=== PATIENT | female | born 1970 | race Caucasian/White ===

== ENCOUNTER 2017-07-01 19:12 | Emergency (ER) | payer SELFPAY ==
[2017-07-01 19:47] VITALS: BP 123/82; PULSE 90; RESP 16; TEMP 99.3; O2SAT 100
--- NOTE | 2017-07-01 21:25 | C.PDOC ---
Time Seen by Provider: 07/01/17 21:25 Chief Complaint (Nursing): Headache Past Medical History Vital Signs: Last Vital Signs Temp 99.3 F 07/01/17 19:40 Pulse 90 07/01/17 19:40 Resp 16 07/01/17 19:40 BP 123/82 07/01/17 19:40 Pulse Ox 100 07/01/17 19:40 Family History: States: Unknown Family Hx - Social History Hx Alcohol Use: No Hx Substance Use: No - Immunization History Hx Tetanus Toxoid Vaccination: No Hx Influenza Vaccination: No Hx Pneumococcal Vaccination: No ED Course And Treatment O2 Sat by Pulse Oximetry: 100 Disposition Counseled Patient/Family Regarding: Studies Performed, Diagnosis - Disposition Disposition Time: 21:25
== END 2017-07-01 22:05 | disposition left against medical advice (07) ==
LOC: C.ER 19:12
DX: Z02.89 Encounter for other administrative examinations (principal); R51 Headache

== ENCOUNTER 2017-10-05 09:28 | Emergency (ER) | payer SELFPAY ==
[2017-10-05 09:50] VITALS: TEMP 98.2
--- NOTE | 2017-10-05 10:56 | C.PDOC ---
History Of Present Illness 47 y/o female presents to ED with complaints of abdominal pain while on her way to work at 8 am today. Patient states she has this pain intermittently for " long time" but takes home remedies and resolves. Patient states today pain was worse with associated nausea and took Omeprazole with mild relief but came to ED for further evaluation. Patient reports last bowel movement was today but very little and denies chest pain, sob, vomiting or any other complaints at this time. Time Seen by Provider: 10/05/17 10:10 Chief Complaint (Nursing): Abdominal Pain History Per: Patient History/Exam Limitations: no limitations Onset/Duration Of Symptoms: Hrs Current Symptoms Are (Timing): Still Present Location Of Pain/Discomfort: Epigastric Past Medical History Reviewed: Historical Data, Nursing Documentation, Vital Signs Vital Signs: Last Vital Signs Temp 98.2 F 10/05/17 09:45 Pulse 71 10/05/17 09:45 Resp 18 10/05/17 09:45 BP 147/95 H 10/05/17 09:45 Pulse Ox 100 10/05/17 11:01 - Medical History PMH: No Chronic Diseases Surgical History: Family History: States: No Known Family Hx - Social History Hx Alcohol Use: No Hx Substance Use: No - Immunization History Hx Tetanus Toxoid Vaccination: No Hx Influenza Vaccination: No Hx Pneumococcal Vaccination: No Review Of Systems Constitutional: Negative for: Fever, Chills Cardiovascular: Negative for: Chest Pain Respiratory: Negative for: Shortness of Breath Gastrointestinal: Positive for: Nausea, Abdominal Pain. Negative for: Vomiting Skin: Negative for: Rash Physical Exam - Physical Exam Appears: Non-toxic, No Acute Distress Skin: Warm, Dry, No Rash Head: Atraumatic, Normacephalic Oral Mucosa: Moist Neck: Normal ROM, Supple Cardiovascular: Rhythm Regular Respiratory: Normal Breath Sounds, No Rales, No Rhonchi, No Wheezing Gastrointestinal/Abdominal: Soft, No Tenderness, No Guarding, No Rebound Back: No CVA Tenderness Extremity: Normal ROM, Capillary Refill (<2 seconds) Neurological/Psych: Oriented x3, Normal Speech, Normal Cognition ED Course And Treatment - Laboratory Results Result Diagrams: 10/05/17 11:03 10/05/17 11:03 O2 Sat by Pulse Oximetry: 100 (RA) Pulse Ox Interpretation: Normal Medical Decision Making Medical Decision Making: Plan: UA, Blood work ordered. Pepcid , Zofran and IV fluids administered pt wilth mild residual tenderness, given maalox. will d/c home on protonix, and f/u clinic and gi. Disposition Counseled Patient/Family Regarding: Studies Performed, Diagnosis, Need For Followup, Rx Given - Disposition Referrals: [facility] [Outside] Sergey Liang MD [Staff Provider] - Disposition: HOME/ ROUTINE Disposition Time: 15:26 Condition: IMPROVED Additional Instructions: Deje de neil omeprazol y tome protonix (ompeprazol). Seguimiento en la clnica mdica y tambin con el doctor GI (estmago), Dr. Liang. Regrese a la dean de emergencias por cualquier sntoma peor. Coma comidas blandas.Please stop taking omeprazole and take protonix (ompeprazole) instead. Follow up in medical clinic and also with the GI (stomach) doctor, Dr Liang. Return to ER for any worse symptoms. Eat bland foods. Prescriptions: Pantoprazole Sodium [Protonix] 40 mg PO DAILY #30 tab Instructions: Gastritis (DC), King Diet Forms: Gen Discharge Inst [place], [employer] [facility] ([place]), Work Excuse - Clinical Impression Clinical Impression: Gastritis - PA / PHLEBOTOMIST ASSOCIATE / Resident Statement MD/DO has reviewed & agrees with the documentation as recorded. - Scribe Statement The provider has reviewed the documentation as recorded by the Jennifer Moreno All medical record entries made by the Rosioibphoebe were at my direction and personally dictated by me. I have reviewed the chart and agree that the record accurately reflects my personal performance of the history, physical exam, medical decision making, and the department course for this patient. I have also personally directed, reviewed, and agree with the discharge instructions and disposition.
[2017-10-05 11:09] LABS: HCG,QUALITATIVE URINE NEGATIVE (NEGATIVE)
[2017-10-05 11:11] LABS: SQUAMOUS EPITHIAL 1 /hpf (0-5); URINE BILIRUBIN NEGATIVE (NEGATIVE); URINE BLOOD NEGATIVE (NEGATIVE); URINE CLARITY Clear (Clear); URINE COLOR Yellow (YELLOW); URINE GLUCOSE (UA) NORMAL (Normal); URINE LEUKOCYTE ESTERASE NEG Leu/uL (Negative); URINE PROTEIN NEGATIVE (NEGATIVE); URINE UROBILINOGEN NORMAL mg/dL (0.2-1.0)
[2017-10-05 11:14] LABS: BASO # 0.1 K/uL (0.0-0.2); BASO % 1.8 % (0.0-2.0); EOS # 0.1 K/uL (0.0-0.7); EOS % 1.1 % (0.0-4.0); HEMOGLOBIN 12.4 g/dL (11.0-16.0); LYMPH # 1.5 K/uL (1.0-4.3); LYMPH % 23.2 % (20.0-40.0); MEAN CELL VOLUME 86.8 fL (81.0-99.0); MEAN CORPUSCULAR HEMOGLOBIN 29.1 pg (27.0-31.0); MEAN CORPUSCULAR HGB CONC 33.5 g/dL (33.0-37.0); MEAN PLATELET VOLUME 8.4 fL (7.2-11.7); MONO # 0.6 K/uL (0.0-0.8); MONO % 8.4 % (0.0-10.0); NEUT # 4.3 K/uL (1.8-7.0); NEUT % 65.5 % (50.0-75.0); RBC 4.27 Mil/uL (3.80-5.20); RED CELL DISTRIBUTION WIDTH 13.6 % (11.5-14.5); WHITE BLOOD COUNT 6.6 K/uL (4.8-10.8)
[2017-10-05 11:23] LABS: ALBUMIN 4.3 g/dL (3.5-5.0); AST/SGOT 19 U/L (14-36); BLOOD UREA NITROGEN 9 mg/dL (7-17); CALCIUM 8.7 mg/dl (8.6-10.4); GFR AFRICAN-AMERICAN > 60; GFR NON-AFRICAN AMERICAN > 60; LIPASE 43 U/L (23-300)
[2017-10-05 11:26] LABS: ALT/SGPT < 6 U/L (9-52)
[2017-10-05] MEDS ORDERED: Aluminum Hydroxide/Magnesium Hydroxide Susp (30 mL) ONE (14:14)
[2017-10-05 16:03] VITALS: BP 136/84; PULSE 78; RESP 16; O2SAT 98
== END 2017-10-05 16:02 | disposition home or self-care (01) ==
LOC: C.ER 09:28
DX: K29.70 Gastritis, unspecified, without bleeding (principal)
CPT/HCPCS: 80053; 81001; 83690; 84703; 85025; 96374; 96375; 99284; J2405